=== PATIENT | female | born 1990 | race Caucasian/White ===

== ENCOUNTER 2019-08-09 17:34 | Emergency (ER) | payer BC ==
[~2019-08-09] VITALS: Ht 170.2 cm; Wt 90.7 kg
== END 2019-08-09 20:59 | disposition home or self-care (01) ==
LOC: ER 17:34
DX: S83.8X1A Sprain of other specified parts of right knee, initial encounter (principal); M25.461 Effusion, right knee; W01.198A Fall on same level from slipping, tripping and stumbling with subsequent striking against other object, initial encounter; Y93.89 Activity, other specified; Y92.89 Other specified places as the place of occurrence of the external cause; Y99.8 Other external cause status